=== PATIENT | female | born 1995 | race Caucasian/White ===

== ENCOUNTER 2017-12-18 18:18 | Emergency (ER) | payer OTHER ==
[2017-12-18 18:50] VITALS: BP 101/56
--- NOTE | 2017-12-18 19:43 | UC ---
Skin Complaint HPI - HPI Summary HPI Summary: 22-year-old female presents with 2 day history of pruritic rash that started on her right arm and has progressively spread to her back chest abdomen and upper legs. She works as a camp counselor and does have potential exposure to environmental irritants although no known contact with poison mirta or poison oak. She also states that she has recently changed the soap she is using otherwise no other changes in detergents, lotions, cosmetics, diet, or medications. She has taken Benadryl twice today most recently 1 hour prior to arrival with some relief from the itching. She denies any swelling of the lips , tongue, throat, or difficulty breathing. - History of Current Complaint Chief Complaint: UCRash Time Seen by Provider: 12/18/17 19:28 Stated Complaint: SKIN COMPLAINT Hx Obtained From: Patient Hx Last Menstrual Period: 11/26/17 ?: No Onset/Duration: Gradual Onset Skin Exposure Onset/Duration: Days Ago - 1 Timing: Constant Onset Severity: Mild Current Severity: Moderate Pain Intensity: 0 Location: Other - See history of present illness Character: Pruritus Aggravating Factor(s): Nothing Alleviating Factor(s): OTC Meds Associated Signs & Symptoms: Positive: Negative Related History: Possible Reaction to: Environmental Exposure - Allergy/Home Medications Allergies/Adverse Reactions: Allergies Allergy/AdvReac Type Severity Reaction Status Date / Time No Known Allergies Allergy Verified 12/18/17 18:52 Home Medications: Home Medications diphenhydrAMINE HCl [Benadryl Allergy] 25 mg PO ONCE PRN 12/18/17 [History Confirmed 12/18/17] Review of Systems Constitutional: Negative Skin: Rash, Other - Pruritus Eyes: Negative ENT: Negative Respiratory: Negative Is Patient Immunocompromised?: No All Other Systems Reviewed And Are Negative: Yes PMH/Surg Hx/FS Hx/Imm Hx - Additional Past Medical History Additional PMH: Noncontributory - Surgical History Surgical History: Yes Surgery Procedure, Year, and Place: L ACL - Family History Known Family History: Positive: Other - Noncontributory - Social History Occupation: Employed Part-time Lives: With Family Alcohol Use: Weekly Substance Use Type: None Smoking Status (MU): Never Smoked Tobacco Physical Exam Triage Information Reviewed: Yes Appearance: Well-Appearing, No Pain Distress, Well-Nourished Vital Signs: Initial Vital Signs Temp 98.5 F 08/12/18 18:41 Pulse 56 12/18/17 18:41 Resp 14 12/18/17 18:41 BP 101/56 12/18/17 18:41 Pulse Ox 100 12/18/17 18:41 Vital Signs Reviewed: Yes Eyes: Positive: Conjunctiva Clear ENT: Positive: Pharynx normal, Uvula midline, Other - Airway patent Respiratory: Positive: Lungs clear, Normal breath sounds, No respiratory distress Skin: Positive: rashes - Pruritic maculopapular rash to bilateral forearms, upper chest, upper back, and bilateral upper legs. Course/Dx - Course Course Of Treatment: 22-year-old female with 2 day history of progressively worsening pruritic rash. She has both the potential for contact with environmental irritants as well as a history of recently changing the soap she is using. Symptoms likely represent a contact dermatitis. She has taken over- the-counter Benadryl with some relief although with the continuing progression of the rash will place her on a 5 day course of prednisone 30 mg daily and have her use a nondrowsy [id number] antihistamine to help with the itching. She was visiting in the area with a friend and will be heading home to [place] early in the morning. I will provide her with a written prescription for the prednisone that she can fill on her way home. She should follow up with the primary care provider in the next 3-5 days if no improvement in symptoms. Seek immediate medical attention should she have any swelling of the lips, tongue, throat, or difficulty breathing. - Differential Diagnoses - Skin Complaint Differential Diagnoses: Contact Dermatitis, Poison [place], Poison [place] - Diagnoses Provider Diagnoses: Contact dermatitis Discharge - Sign-Out/Discharge Documenting (check all that apply): Patient Departure - Discharge Plan Condition: Stable Disposition: HOME Patient Education Materials: Contact Dermatitis (ED) Referrals: No Primary Care Phys,NOPCP [Primary Care Provider] - Additional Instructions: You were given a dose of prednisone in the clinic today to help with the itching and rash. I would like you to continue taking prednisone 30 mg once daily for the next 4 days. He should start this tomorrow. I would recommend using an [id number] nondrowsy antihistamine such as Zyrtec, Claritin, or Shireen to help with the itching. There are generic versions of these medications and her appropriate to use. You may use over-the- counter Benadryl however this may be very sedating. I would recommend she stop using your soap and use a brand that you have previously used without problems as I cannot rule out this as a possible cause of her rash. Follow-up with your primary care provider in 3-5 days if you were seen no improvement in symptoms. Seek immediate medical attention the emergency room should she have any swelling of the lips, tongue, throat, or difficulty breathing. Per institutional requirements, I have reviewed the chart, however, I was not consulted specifically or made aware of this patient by the above midlevel provider. I did not personally evaluate, interact with , or disposition this patient. - Billing Disposition and Condition Condition: STABLE Disposition: Home
[2017-12-18] MEDS ORDERED: predniSONE TAB* 10 MG PO ONE (19:50)
== END 2017-12-18 20:14 | disposition home or self-care (01) ==
LOC: UCCORT 18:18
DX: L25.5 Unspecified contact dermatitis due to plants, except food (principal); T63.791A Toxic effect of contact with other venomous plant, accidental (unintentional), initial encounter; Y92.9 Unspecified place or not applicable
CPT/HCPCS: 99202; G0463; J7512